=== PATIENT | male | born 1930 | race Caucasian/White ===

== ENCOUNTER 2017-04-30 12:04 | Outpatient (CLI) | payer MEDICARE, OTHER ==
--- NOTE | 2017-04-30 17:35 | PET ---
NUCLEAR MEDICINE FDG PET CT: (Positron Emission Tomography) HISTORY: 86-year-old male with lymphoma. Restaging. COMPARISON: 03/24/16. TECHNIQUE: IV injection F-18 Fluorodeoxyglucose (FDG) dose: 11.4 mCi PET and attenuation-correction CT performed from skull base to proximal thighs. FINDINGS: SUV (standard uptake value) numbers given are maximum SUV's: The previously demonstrated FDG avid right submandibular (Level I-B) lymph node has resolved. There is a new finding of a focus of hypermetabolic activity at the posterior larynx, slightly to th e left of midline. The previously demonstrated FDG avid bilateral supraclavicular lymph nodes have resolved. There is currently a left anterior axillary FDG avid lymph node with SUV of 4.9. The anatomy of the axilla is difficult to compare with the prior study because the patient was scanned with the arms do wn previously, whereas the arms are up on the current study. It probably represents a new hypermetab olic lymph node since the prior study. Posterior to the left pectoralis musculature, there were previously multiple very enlarged hypermeta bolic lymph nodes, with the greatest SUV of 21.0 in the largest approximately 6 x 4 cm mass. Current ly, there is a more anteriorly located 4 x 3 cm mass anterolateral to the left pectoralis musculatur e, with SUV of 6.3. It is uncertain whether or not this represents the same lymph node, because of d ifferences in positioning. Slightly deep to this, there is a much smaller pathologic lymph node with SUV of 4.8. Previously, there was a left paraaortic retroperitoneal mass with SUV of 13.2. That has now resolved (Approximately L1-2 level). Currently, there are no foci of abnormal hypermetabolic activity in the abdominal cavity or pelvic cavity. The previously demonstrated hypermetabolic right inguinal lymph node has resolved. IMPRESSION: 1. The previously demonstrated bilateral supraclavicular lymph nodes and the right Level I-B hyperm etabolic lymph node, have resolved. 2. Multiple enlarged left axillary hypermetabolic malignant lymph nodes are present on the current study, but these have improved since the previous study. 3. The previously demonstrated left retroperitoneal and right inguinal FDG avid lymph nodes have re solved. Currently, there is no evidence of malignant activity in the abdominal cavity or pelvis. 4. A new hypermetabolic focus at the posterior aspect of the larynx. It is uncertain whether this r epresents a laryngeal cancer or asymmetrical muscle contraction activity involving muscles of vocali zation. Recommend further evaluation with CT of the neck with contrast. ASHER R POS: ABRAN
== END 2017-04-30 12:05 | disposition home or self-care (01) ==
LOC: PET 12:04
PROVIDERS: ATTEND Internal Medicine Hematology & Oncology
DX: C85.90 Non-Hodgkin lymphoma, unspecified, unspecified site (principal)
CPT/HCPCS: 78815; A9552

== ENCOUNTER 2017-09-19 10:26 | Outpatient (CLI) | payer MEDICARE ==
--- NOTE | 2017-09-19 16:05 | PET ---
WHOLE BODY PET CT: 09/19/17 CLINICAL HISTORY: Lymphoma. Reference made to 04/30/17. FINDINGS: There is redemonstration of hypermetabolic adenopathy of the left anterolateral chest wall/left axill a, which is increased from prior exam, with SUV measuring up to approximately 6.7. There is newly dev eloped hypermetabolic adenopathy of the left inguinal region with SUV of 4.3. Incidental note of diffuse vascular disease. There are bilateral patchy opacities of the lungs which may represent atelectasis. There is elevation of the left hemidiaphragm. IMPRESSION: Interval progression of hypermetabolic bulky adenopathy of the left chest and left axilla. Newly developed hypermetabolic adenopathy of the left inguinal region. These findings indicate metabo lically active lymphoma. POS: SUZANNAH
== END 2017-09-19 10:27 | disposition home or self-care (01) ==
LOC: PET 10:26
PROVIDERS: ATTEND Internal Medicine Hematology & Oncology
DX: C82.04 Follicular lymphoma grade I, lymph nodes of axilla and upper limb (principal); G46.4 Cerebellar stroke syndrome; I67.82 Cerebral ischemia; R59.0 Localized enlarged lymph nodes
CPT/HCPCS: 78815; A9552